=== PATIENT | female | born 1995 | race Two or more races ===

== ENCOUNTER 2016-12-22 20:58 | Emergency (ER) | payer SELFPAY ==
[2016-12-22] MEDS ORDERED: HYDROCODONE/APAP 5/325MG 1 EACH TABLET ONE (22:08)
[2016-12-22] MEDS ORDERED: IBUPROFEN 600 MG TABLET PO ONE ×2 (22:08→22:30)
[2016-12-22] MEDS ORDERED: HYDROCODONE/APAP 5/325MG 1 EACH TABLET PO ONE (22:30)
== END 2016-12-22 22:21 | disposition home or self-care (01) ==
DX: S09.90XA Unspecified injury of head, initial encounter (principal); S01.81XA Laceration without foreign body of other part of head, initial encounter; W01.198A Fall on same level from slipping, tripping and stumbling with subsequent striking against other object, initial encounter; Y93.89 Activity, other specified; Y92.89 Other specified places as the place of occurrence of the external cause; Y99.9 Unspecified external cause status
CPT/HCPCS: 12002; 12011; 99284; A4606 ×2; A6402; Z7610 ×2

== ENCOUNTER 2017-01-01 13:50 | Emergency (ER) | payer SELFPAY ==
[~2017-01-01] VITALS: Ht 165.1 cm; Wt 68.0 kg
[2017-01-01 15:12] VITALS: BP 157/99
== END 2017-01-01 16:07 | disposition home or self-care (01) ==
LOC: ER 13:52
DX: S01.01XD Laceration without foreign body of scalp, subsequent encounter (principal)
CPT/HCPCS: 99281; A4606; Z7610; Z7502